=== PATIENT | female | born 2000 | race African-American/Black ===

== ENCOUNTER 2022-08-16 18:09 | Emergency (ER) | payer MEDICAID ==
[~2022-08-16] VITALS: Ht 160 cm; Wt 75.0 kg
[2022-08-16 18:49] LABS: Basophils # (auto) 0 10 ^3/uL (0-0.2); Eosinophils # (auto) 0.1 10 ^3/uL (0-0.8); Hemoglobin 11.3 g/dL (12.2-16.2); Lymphocytes % (auto) 25.6 % (10.0-50.0); Monocytes # (auto) 0.5 10 ^3/uL (0-1.3); Neutrophils # (auto) 3.9 10 ^3/uL (1.6-8.6); Nucleated Red Blood Cells % 0.1 %
[2022-08-16 18:51] LABS: Basophils % (auto) 0.6 % (0.0-2.0); Hematocrit 34.7 % (36.0-46.0); Lymphocytes # (auto) 1.6 10 ^3/uL (0.4-5.4); Mean Corpuscular Hemoglobin 26.1 pg (28.0-32.0); Mean Corpuscular Hgb Conc. 32.5 g/dL (32.0-36.0); Mean Corpuscular Volume 80.6 fL (80.0-100.0); Monocytes % (auto) 8.2 % (0.0-12.0); Neutrophils % (auto) 64.6 % (37.0-80.0); Red Blood Cells 4.31 10^6/uL (4.0-5.20); White Blood Cell 6.1 10^3/uL (4.4-10.8)
[2022-08-16 18:56] LABS: Albumin 3.9 g/dL (3.4-5.0); Calcium 9.3 mg/dL (8.5-10.1); Potassium 3.1 mmol/L (3.5-5.1)
[2022-08-16 18:59] LABS: BUN/Creatinine Ratio 8.9 (10.0-20.0); Bilirubin, Total 0.6 mg/dL (0.2-1.0); Total Protein 7.7 g/dL (6.4-8.2)
[2022-08-16] MEDS ORDERED: POTASSIUM EFFERVESENT TAB 25 MEQ PO ONE (20:00)
[2022-08-16 23:11] VITALS: BP 138/75
== END 2022-08-16 23:16 | disposition home or self-care (01) ==
LOC: ER 18:09
DX: O20.8 Other hemorrhage in early pregnancy (principal); R10.2 Pelvic and perineal pain; Z3A.01 Less than 8 weeks gestation of pregnancy
CPT/HCPCS: 36415; 76856; 80053; 84702; 85025

== ENCOUNTER 2023-02-02 21:36 | Emergency (ER) | payer MEDICAID ==
[~2023-02-02] VITALS: Ht 160 cm; Wt 66.8 kg
[2023-02-02 21:43] VITALS: BP 105/55; PULSE 72; RESP 20; TEMP 97.7
[2023-02-02 22:54] LABS: Urine Bacteria NONE SEEN /hpf (None Seen); Urine Blood Negative /uL (Negative); Urine Clarity Clear (Clear); Urine Color Yellow (Yellow); Urine Mucus FEW (None Seen); Urine Protein, UAD Negative (Negative); Urine Specific Gravity 1.032 (1.001-1.035); Urine Urobilinogen Normal (Negative); Urine WBC 1 /hpf (0 - 5); Urine pH 5.5 (5.0-8.0)
[2023-02-02] MEDS ORDERED: AMOX875T4 PO (23:36)
[2023-02-02 23:40] VITALS: O2SAT 98
== END 2023-02-02 23:50 | disposition home or self-care (01) ==
LOC: ER 21:36
DX: J20.9 Acute bronchitis, unspecified (principal); Z88.1 Allergy status to other antibiotic agents; Z32.02 Encounter for pregnancy test, result negative
CPT/HCPCS: 81001; 81025

== ENCOUNTER 2023-02-24 19:48 | Emergency (ER) | payer MEDICAID ==
[~2023-02-24] VITALS: Ht 160 cm; Wt 63.6 kg
[~2023-02-24 19:48] MED LIST: AMOX875T4 PO
[2023-02-24 20:10] VITALS: BP 100/64; PULSE 75; RESP 18; O2SAT 100
== END 2023-02-25 00:07 | disposition left against medical advice (07) ==
LOC: ER 19:48
DX: J02.9 Acute pharyngitis, unspecified (principal); R05.9 Cough, unspecified; R51.9 Headache, unspecified; Z53.21 Procedure and treatment not carried out due to patient leaving prior to being seen by health care provider

== ENCOUNTER 2023-04-23 11:09 | Emergency (ER) | payer SELFPAY ==
[~2023-04-23] VITALS: Ht 160 cm; Wt 67.5 kg
[2023-04-23 13:34] LABS: Rapid Strep A Screen-Throat Negative
[2023-04-23 14:50] VITALS: BP 113/65; PULSE 80; RESP 18; O2SAT 100
[2023-04-23] MEDS ORDERED: NABU-72 PO (15:53)
[2023-04-23] MEDS ORDERED: AUG875T PO (15:53)
== END 2023-04-23 15:58 | disposition home or self-care (01) ==
LOC: ER 11:09
DX: J03.90 Acute tonsillitis, unspecified (principal); R59.0 Localized enlarged lymph nodes; Z79.899 Other long term (current) drug therapy
CPT/HCPCS: 87070; 87880

== ENCOUNTER 2024-01-07 09:58 | Emergency (ER) | payer MEDICAID ==
[~2024-01-07] VITALS: Ht 160 cm; Wt 71.2 kg
[~2024-01-07 09:58] MED LIST changes: +AUG875T PO; +NABU-72 PO
[2024-01-07 10:29] LABS: Urine Bacteria None Seen /hpf (None Seen)
[2024-01-07 12:22] LABS: Urine Blood Negative /uL (Negative); Urine Clarity Clear (Clear); Urine Color Yellow (Yellow); Urine Mucus FEW (None Seen); Urine Protein, UAD 1+ (Negative); Urine Specific Gravity 1.034 (1.001-1.035); Urine Urobilinogen Normal (Negative); Urine WBC 5 /hpf (0 - 5)
[2024-01-07 15:07] LABS: Basophils # (auto) 0 10 ^3/uL (0-0.2); Basophils % (auto) 0.3 % (0.0-2.0); Eosinophils # (auto) 0 10 ^3/uL (0-0.8); Hemoglobin 12.4 g/dL (12.2-16.2); Lymphocytes # (auto) 0.9 10 ^3/uL (0.4-5.4); Lymphocytes % (auto) 9.3 % (10.0-50.0); Mean Corpuscular Hemoglobin 26.6 pg (28.0-32.0); Mean Corpuscular Hgb Conc. 33.4 g/dL (32.0-36.0); Mean Corpuscular Volume 79.7 fL (80.0-100.0); Monocytes # (auto) 0.3 10 ^3/uL (0-1.3); Monocytes % (auto) 3.6 % (0.0-12.0); Neutrophils # (auto) 7.9 10 ^3/uL (1.6-8.6); Neutrophils % (auto) 86.8 % (37.0-80.0); Nucleated Red Blood Cells % 0.1 %; Platelet Count (auto) 237 10^3/uL (140-450); Red Blood Cells 4.65 10^6/uL (4.0-5.20); Red Cell Distribution Width 15.5 % (11.8-14.3); White Blood Cell 9.1 10^3/uL (4.4-10.8)
[2024-01-07 15:18] LABS: Anion Gap 8 (5-15); Carbon Dioxide 24 mmol/L (20-30); Chloride 102 mmol/L (98-107); Potassium 3.3 mmol/L (3.5-5.1); Sodium 134 mmol/L (136-145)
[2024-01-07 15:19] LABS: Calcium 9.6 mg/dL (8.7-10.4)
[2024-01-07 15:24] LABS: BUN/Creatinine Ratio 6.6 (10.0-20.0); Blood Urea Nitrogen 6 mg/dL (9-23); Glucose 95 mg/dL (74-106); Magnesium 1.8 mg/dL (1.6-2.6)
[2024-01-07] MEDS: METOCLOPRAMIDE HCL 5MG/ml INJ 2ml VIAL IV ONE (16:06)
[2024-01-07] MEDS: SODIUM CHLORIDE 0.9% 1,000 ML IVB ONE (16:07)
[2024-01-07 16:11] LABS: Lipase 36 U/L (12-53)
[2024-01-07 16:14] VITALS: TEMP 100.1
[2024-01-07] MEDS ORDERED: PROC10TA6 PO (18:12)
[2024-01-07] MEDS ORDERED: DICL75TA2 PO (18:12)
[2024-01-07 18:16] LABS: Rapid Influenza A Negative (Negative); Rapid Influenza B Negative (Negative)
[2024-01-07 18:17] LABS: COVID19 ANTIGEN SOFIA FIA NEGATIVE (NEGATIVE)
[2024-01-07 18:35] VITALS: BP 122/53; PULSE 104; RESP 16; O2SAT 99
== END 2024-01-07 18:44 | disposition home or self-care (01) ==
LOC: ER 09:58
DX: B34.9 Viral infection, unspecified (principal); R10.2 Pelvic and perineal pain; E86.0 Dehydration; Z20.822 Contact with and (suspected) exposure to COVID-19; Z32.02 Encounter for pregnancy test, result negative
CPT/HCPCS: 36415; 71046; 80048; 81001; 83690; 83735; 84702; 85025; 87426; 87804; 96361; 96374; 99284; J2765; J7030